=== PATIENT | female | born 1990 | race African-American/Black ===

== ENCOUNTER 2023-12-29 17:51 | Emergency (ER) | payer OTHER ==
[2023-12-29 18:03] VITALS: BP 138/82; PULSE 90; RESP 18; TEMP 97.7; BMI 29.0
[2023-12-29 19:38] LABS: URINE APPEARANCE CLEAR; URINE BILIRUBIN NEGATIVE (NEGATIVE); URINE COLOR YELLOW; URINE GLUCOSE (UA) NEGATIVE (NEGATIVE); URINE KETONE NEGATIVE (NEGATIVE); URINE LEUK ESTERASE NEGATIVE (NEGATIVE); URINE NITRITE NEGATIVE (NEGATIVE); URINE PROTEIN NEGATIVE (NEGATIVE); URINE UROBILINOGEN 0.2 mg/dL (0.2-1.0)
[2023-12-29 19:41] LABS: HCG,QUALITATIVE URINE Negative
[2023-12-29] MEDS ORDERED: ONDANSETRON 4 MG/2 ML VIAL ONE (19:49)
[2023-12-29] MEDS ORDERED: ACETAMINOPHEN INJECTION 100 ML IVPB ONE (19:49)
[2023-12-29] MEDS: SODIUM CHLORIDE 0.9% 500 ML INFUS.BAG IV ONE (19:59)
[2023-12-29] MEDS: ACETAMINOPHEN 1000 MG/100 ML BAG IVPB ONE (19:59)
[2023-12-29] MEDS: ONDANSETRON 4 MG/2 ML VIAL IVPUSH ONE (19:59)
[2023-12-29 21:29] LABS: BASO % 0.4 % (0-2.0); EOS % 3.3 % (0-4.5); HEMATOCRIT 35.3 % (32.4-45.2); LYMPH % 33.1 % (8-40); MCH 30.9 pg (25.7-33.7); MCHC 33.9 g/dl (32.0-36.0); MEAN CELL VOLUME 91.2 fl (80-96); MEAN PLT VOLUME 7.6 fl (7.5-11.1); MONO % 7.9 % (3.8-10.2); NEUT % 55.3 % (42.8-82.8); PLATELET COUNT 262 10^3/uL (134-434); RBC 3.87 M/mm3 (3.60-5.2); RDW 13.7 % (11.6-15.6)
[2023-12-29 21:48] LABS: POTASSIUM 3.2 mmol/L (3.5-5.1)
[2023-12-29 21:50] LABS: ALBUMIN 3.6 g/dl (3.4-5.0); BLOOD UREA NITROGEN 11.2 mg/dL (7-18); CALCIUM 8.5 mg/dL (8.5-10.1)
[2023-12-29 21:54] LABS: CREATININE 0.9 mg/dL (0.55-1.3)
[2023-12-29 21:55] LABS: BILIRUBIN,TOTAL 0.4 mg/dL (0.2-1); TOT PROT 7.4 g/dl (6.4-8.2)
[2023-12-29] MEDS ORDERED: POTASSIUM CHLORIDE ORAL LIQUID 20 MEQ/15 ML ONE (23:21)
[2023-12-29] MEDS ORDERED: MAGNESIUM SULFATE IN WATER 2 GM/50 ML IVPB IVPB ONE (23:21)
[2023-12-29] MEDS: POTASSIUM CHLORIDE ORAL LIQUID 20 MEQ/15 ML PO ONE (23:32)
[2023-12-29] MEDS ORDERED: KETOROLAC TROMETHAMINE 15 MG/ML VIAL ONE (23:47)
[2023-12-29] MEDS: KETOROLAC TROMETHAMINE 15 MG/ML VIAL IVPUSH ONE (23:49)
[2023-12-29] MEDS: MAGNESIUM SULF 50% (8.12 MEQ/2 ML-1 GM VIAL) IVPB ONE (23:58)
== END 2023-12-30 00:38 | disposition home or self-care (01) ==
LOC: JER 17:51
PROC: 3E033NZ Introduction of Analgesics, Hypnotics, Sedatives into Peripheral Vein, Percutaneous Approach (ICD-10-PCS; principal; 2023-12-29)
PROC: 3E0333Z Introduction of Anti-inflammatory into Peripheral Vein, Percutaneous Approach (ICD-10-PCS; 2023-12-29)
PROC: 3E033GC Introduction of Other Therapeutic Substance into Peripheral Vein, Percutaneous Approach (ICD-10-PCS; 2023-12-29)
DX: R11.2 Nausea with vomiting, unspecified (principal); R19.7 Diarrhea, unspecified; K52.9 Noninfective gastroenteritis and colitis, unspecified; E87.6 Hypokalemia; Z20.822 Contact with and (suspected) exposure to COVID-19
CPT/HCPCS: 0241U-QW; 36415; 74176-TC; 76705-TC; 80053; 81003; 82150; 83690; 84703; 85025; 86850; 86900; 86901; 99284-25; J0131

== ENCOUNTER 2024-05-24 05:59 | Emergency (ER) | payer OTHER ==
[2024-05-24 06:16] VITALS: BP 135/93; PULSE 86; RESP 18; TEMP 99; BMI 30.9
[2024-05-24] MEDS ORDERED: IBUPROFEN 400 MG TABLET (FP) PO ONE (07:33)
[2024-05-24] MEDS ORDERED: CYCLOBENZAPRINE HCL 10 MG TABLET (FP) ONE (07:33)
[2024-05-24] MEDS: IBUPROFEN 400 MG TABLET (FP) PO ONE (07:34)
[2024-05-24] MEDS: CYCLOBENZAPRINE HCL 10 MG TABLET (FP) PO ONE (07:34)
== END 2024-05-24 07:51 | disposition home or self-care (01) ==
LOC: JER 05:59
DX: R07.89 Other chest pain (principal)
CPT/HCPCS: 93005; 93010; 99283-25